=== PATIENT | female | born 1930 | race African-American/Black ===

== ENCOUNTER 2018-02-22 17:51 | Emergency (ER) | payer OTHER, MEDICAID ==
[~2018-02-22] VITALS: Ht 172.7 cm; Wt 62.1 kg
[2018-02-22 17:51] VITALS: BP 146/86
[~2018-02-22 17:51] MED LIST: ACET-5636 PO; AMLO10TA1 PO; AMLO5TAB PO; ASPI-1790 PO; BISA10SU2 RC; CALC-20 PO; CRAN475C PO; DOCU-299 PO; DONE10TA10 PO; DULO30EC PO; FLUT0.0548 NS; GABA-560 PO; LACT10SO1 PO; LUBI24SG4 PO; MEMA10TA PO; METO-50 PO; NITR0.3T12 SL; PANT20EC PO; PRAM0.75 PO; RAMI10CA PO; ROC1PM IV; SIMV20TA6; [UNRECOGNIZED DRUG - CODE] PO
--- NOTE | 2018-02-22 17:51 | NUR ---
PT JESSICA BLS TO ER BED 07
--- NOTE | 2018-02-22 17:55 | NUR ---
87 y/f biba amr bls from [facility] with c/o left leg x today and dysuria/vaginal pain x yesterday. Patient denies any recent fall or injury to left leg. No swelling or discoloration noted. be down, bedrail up x 1, er md aware and notified of pt status. hx--COPD, CHF, Hyperlipidemia, Depression, HTN, SVT, Chronic pain with narcotic dependence
--- NOTE | 2018-02-22 19:12 | NUR ---
REPORT FROM JAYLAN SEE FOR TRANSFER OF CARE
[2018-02-22] MEDS ORDERED: LEVOFLOXACIN 500 MG/D5W PREMIX 100 ML IV ONE (20:40)
[2018-02-22] MEDS ORDERED: HYDROcodone/APAP 5/325 MG 1 TAB TAB PO ONE ×3 (20:40→23:25)
--- NOTE | 2018-02-22 20:56 | NUR ---
ULTRASOUND AT BEDSIDE.
[2018-02-22 21:32] LABS: BASOPHILS # (AUTO) 0.1 K/uL (0.00-0.22); BASOPHILS % (AUTO) 0.8 % (0.0-2.0); EOSINOPHILS # (AUTO) 0.2 K/uL (0-0.4); HEMATOCRIT 33.9 % (36-48); HEMOGLOBIN 10.9 g/dL (12.0-16.0); LYMPHOCYTES # (AUTO) 1.7 K/uL (2.5-16.5); LYMPHOCYTES % (AUTO) 24.7 % (20.5-51.1); MEAN CORPUSCULAR HEMOGLOBIN 31 pg (27-31); MEAN CORPUSCULAR HGB CONC 32 g/dL (33-37); MEAN CORPUSCULAR VOLUME 95.1 fL (80-94); MONOCYTES # (AUTO) 0.4 K/uL (0.8-1.0); MONOCYTES % (AUTO) 5.6 % (1.7-9.3); NEUTROPHILS # (AUTO) 4.5 K/uL (1.8-7.7); NEUTROPHILS % (AUTO) 65.9 % (42.2-75.2); PLATELET COUNT (AUTO) 225 K/uL (140-450); RED BLOOD CELL COUNT(AUTO) 3.56 MIL/uL (4.20-5.40); RED CELL DISTRIBUTION WIDTH 13.7 % (11.6-13.7); WHITE BLOOD COUNT (AUTO) 6.9 K/uL (4.8-10.8)
[2018-02-22 21:34] LABS: APPEARANCE,URINE CLEAR (CLEAR); BILIRUBIN,URINE NEGATIVE (NEGATIVE); BLOOD, URINE NEGATIVE (NEGATIVE); COLOR,URINE YELLOW (YELLOW); LEUKOCYTE ESTERASE ,URINE NEGATIVE (NEGATIVE); NITRITE, URINE NEGATIVE (NEGATIVE); UGLUCOSE NEGATIVE (NEGATIVE)
[2018-02-22 21:46] LABS: ANION GAP 7.3 (8-16); CARBON DIOXIDE 31.8 mmol/L (21-32); CHLORIDE 101 mmol/L (98-107); CREATININE 0.9 mg/dL (0.6-1.3); GLUCOSE 104 mg/dL (74-106); POTASSIUM 4.1 mmol/L (3.5-5.1); SODIUM SERUM 136 mmol/L (136-145); UREA NITROGEN, BLOOD 18 mg/dL (7-18)
[2018-02-22 21:52] LABS: ALBUMIN 3.4 g/dL (3.4-5.0); ASPARTATE AMINOTRANSFERASE 19 U/L (15-37); TOTAL BILIRUBIN 0.2 mg/dL (0.0-1.0)
--- NOTE | 2018-02-22 22:26 | NUR ---
PT RESTING. GIVEN WATER, NO FURTHER REQUESTS AT THIS TIME. WILL CONTINUE TO MONITOR.
--- NOTE | 2018-02-22 23:50 | NUR ---
PATIENT RESTING AT THIS TIME. NO SIGNS OF DISTRESS.
[2018-02-23 00:20] VITALS: BP 145/82
--- NOTE | 2018-02-23 00:20 | NUR ---
Patient discharged with v/s stable. Written and verbal after care instructions given and explained. Patient alert, oriented and verbalized understanding of instructions. Ambulance Transport with to [facility]. All questions addressed prior to discharge. ID band removed. Patient advised to follow up with PMD. Rx of TRAMADOL 50MG AND MACROBID CAPSULE 100MG given. Patient educated on indication of medication including possible reaction and side effects. Opportunity to ask questions provided and answered.
== END 2018-02-23 00:20 ==
LOC: MED 17:51
DX: N30.90 Cystitis, unspecified without hematuria (principal); M79.605 Pain in left leg; I11.0 Hypertensive heart disease with heart failure; I50.9 Heart failure, unspecified; J44.9 Chronic obstructive pulmonary disease, unspecified; F03.90 Unspecified dementia, unspecified severity, without behavioral disturbance, psychotic disturbance, mood disturbance, and anxiety; E78.5 Hyperlipidemia, unspecified; F32.9 Major depressive disorder, single episode, unspecified; Z88.0 Allergy status to penicillin; Z79.899 Other long term (current) drug therapy; Z79.82 Long term (current) use of aspirin
CPT/HCPCS: 36415; 80053; 81003; 85025; 87040; 93971; 96365; 99285; J1956; Q0092

== ENCOUNTER 2018-03-25 15:36 | Emergency (ER) | payer OTHER, MEDICAID ==
[~2018-03-25] VITALS: Ht 172.7 cm; Wt 59.9 kg
--- NOTE | 2018-03-25 15:40 | NUR ---
PT LAURAA BLS TO ER BED 09
[2018-03-25 15:42] VITALS: BP 161/64
--- NOTE | 2018-03-25 15:45 | NUR ---
PT BIBA c/o buttock pain, takes percocet last dose today with no relief. WHEELCHAIR BOUND. DENIES INJURIES, SKIN INTACT. 01/23 pain. no other complaints.
[2018-03-25] MEDS ORDERED: MORPHINE SULFATE 4 MG/ML SYR IM ONE ×2 (15:55→16:50)
--- NOTE | 2018-03-25 16:20 | NUR ---
ATTEMPTED STRAIGHT CATH X 2, UNABLE TO OBTAIN URINE. EDMD AWARE.
--- NOTE | 2018-03-25 16:31 | NUR ---
COLLECTED URINE VIA BED PAIN
--- NOTE | 2018-03-25 16:45 | NUR ---
PT C/O PAIN, EDMD AWARE
--- NOTE | 2018-03-25 16:55 | NUR ---
CALLED [facility], S/W [facility], TRANSPORT ETA 90 MINUTES. WILL ARRIVE AROUND 183
--- NOTE | 2018-03-25 17:11 | NUR ---
PT GIVEN WATER, TOILETED CHANGED AND CLEANED AND POSITION CHANGED. NO COMPLAINTS AT THIS TIME.
--- NOTE | 2018-03-25 17:30 | NUR ---
PT REFUSING TO KEEP MONITOR ON, EDMD AWARE
[2018-03-25 18:30] VITALS: BP 158/78
--- NOTE | 2018-03-25 18:31 | NUR ---
Patient discharged with v/s stable. Written and verbal after care instructions given and explained. Patient alert, oriented and verbalized understanding of instructions. Ambulatory with to [facility]. All questions addressed prior to discharge. ID band removed. Patient advised to follow up with PMD. Rx of PERCOCET given. Patient educated on indication of medication including possible reaction and side effects. Opportunity to ask questions provided and answered.
--- NOTE | 2018-03-25 18:34 | NUR ---
REPORT GIVEN TO EAGLE TIAN AT [facility]
== END 2018-03-25 18:31 | disposition home or self-care (01) ==
LOC: MED 15:36
DX: K62.89 Other specified diseases of anus and rectum (principal); K59.00 Constipation, unspecified; R30.0 Dysuria; I50.9 Heart failure, unspecified; I11.0 Hypertensive heart disease with heart failure; J44.9 Chronic obstructive pulmonary disease, unspecified; F03.90 Unspecified dementia, unspecified severity, without behavioral disturbance, psychotic disturbance, mood disturbance, and anxiety; Z86.73 Personal history of transient ischemic attack (TIA), and cerebral infarction without residual deficits; Z88.0 Allergy status to penicillin; Z79.899 Other long term (current) drug therapy; Z79.82 Long term (current) use of aspirin
CPT/HCPCS: 81002; 96372; 99283; J2270

== ENCOUNTER 2019-03-15 22:58 | Inpatient (IN) | payer OTHER, MEDICAID ==
[~2019-03-15] VITALS: Ht 170.2 cm; Wt 63.5 kg
[2019-03-15 22:58] VITALS: BP 151/84
[~2019-03-15 22:58] MED LIST changes: -ASPI-1790 PO; +ASPI-1886 PO; +METO-251 PO; -METO-50 PO; +SIMV-30; -SIMV20TA6
--- NOTE | 2019-03-15 22:58 | NUR ---
PT [facility]IB [facility]. TAKEN TO BED 7
--- NOTE | 2019-03-15 23:06 | NUR ---
Dr. Butterfield examining patient.
[2019-03-15] MEDS ORDERED: NACL 0.9% 500 ML IV SCH (23:11)
[2019-03-15] MEDS ORDERED: MORPHINE SULFATE 2 MG/ML SYR IVP ONE ×3 (23:15→23:55)
--- NOTE | 2019-03-15 23:30 | NUR ---
RECEIVED PATIENT FROM THE THE AMBULANCE STAFF. PATIENT AWAKE,CONFUSED WITH LEFT LEG SWOLLEN AND APPEARED TO BE OUT OF PLACE. PATIENT S/P FALL FROM THE HALFWAY. PATIENT HAD CAV 06/19/2018 WITH LEFT SIDED WEAKNESS AND UNABLE TO SPEAK BUT ABLE TI NODE YES OR NO. MONITOR CONNECTED WITHE THE PULSE OXIMATORY AND BLOOD PRESSURE CUFF. VITAL SIGN TAKEN AND RECORDED WNL. IV ACCESS WAS ESTABLISHED AND ORDERED LABS DRAWN THEN. 500ML NL SALINE TO RUN OPEN WAS SARTED ALSO. pATIENT WAS MADE COMFORTABLE. WILL MONITOR.
--- NOTE | 2019-03-16 00:03 | NUR ---
XRAY AT BEDSIDE
[2019-03-16 00:05] LABS: BASOPHILS % (AUTO) 0.4 % (0.0-2.0); EOSINOPHILS # (AUTO) 0.1 K/uL (0-0.4); EOSINOPHILS % (AUTO) 1.2 % (0.0-4.0); HEMATOCRIT 29.3 % (36-48); HEMOGLOBIN 9.4 g/dL (12.0-16.0); LYMPHOCYTES % (AUTO) 13.2 % (20.5-51.1); MEAN CORPUSCULAR HEMOGLOBIN 31 pg (27-31); MEAN CORPUSCULAR HGB CONC 32 g/dL (33-37); MEAN CORPUSCULAR VOLUME 94.6 fL (80-94); MONOCYTES # (AUTO) 0.6 K/uL (0.8-1.0); MONOCYTES % (AUTO) 7.5 % (1.7-9.3); NEUTROPHILS % (AUTO) 77.7 % (42.2-75.2); PLATELET COUNT (AUTO) 191 K/uL (140-450); RED BLOOD CELL COUNT(AUTO) 3.09 MIL/uL (4.20-5.40); RED CELL DISTRIBUTION WIDTH 13.8 % (11.6-13.7); WHITE BLOOD COUNT (AUTO) 7.7 K/uL (4.8-10.8)
[2019-03-16 00:19] LABS: ANION GAP 9.5 (8-16); CARBON DIOXIDE 32.2 mmol/L (21-32); CHLORIDE 105 mmol/L (98-107); CREATININE 1.1 mg/dL (0.6-1.3); GLUCOSE 123 mg/dL (74-106); POTASSIUM 4.7 mmol/L (3.5-5.1); SODIUM SERUM 142 mmol/L (136-145); UREA NITROGEN, BLOOD 23 mg/dL (7-18)
[2019-03-16 00:27] LABS: ALBUMIN 3.1 g/dL (3.4-5.0); ASPARTATE AMINOTRANSFERASE 21 U/L (15-37); TOTAL BILIRUBIN 0.3 mg/dL (0.0-1.0)
[2019-03-16 00:34] LABS: PROTHROMBIN TIME 10.1 secs (10.8-13.4)
[2019-03-16] MEDS ORDERED: NACL 0.9% 1,500 ML IV ONE (00:45)
[2019-03-16] MEDS ORDERED: XALOS OP (01:48)
[2019-03-16] MEDS ORDERED: METO-251 PO (01:48)
[2019-03-16] MEDS ORDERED: MEMA10TA PO (01:48)
[2019-03-16] MEDS ORDERED: DULO60EC PO (01:48)
[2019-03-16] MEDS ORDERED: SACU1TAB9 PO (01:48)
[2019-03-16] MEDS ORDERED: AMLO5TAB PO (01:48)
[2019-03-16] MEDS ORDERED: FENT50TD45 TD (01:48)
[2019-03-16] MEDS ORDERED: PUL.5N NEB (01:48)
[2019-03-16] MEDS ORDERED: ORE25 PO (01:48)
[2019-03-16] MEDS ORDERED: TRAZ-343 PO (01:48)
[2019-03-16] MEDS ORDERED: DEXT1DRO4 OP (01:48)
[2019-03-16] MEDS ORDERED: OMEP20TC12 PO (01:48)
[2019-03-16] MEDS ORDERED: ATRN INH (01:48)
[2019-03-16] MEDS ORDERED: LEVA0.6318 INH (01:48)
[2019-03-16] MEDS ORDERED: ACET-5636 PO (01:48)
--- NOTE | 2019-03-16 01:50 | NUR ---
LEFT LEG IMMOBILIZER APPLIED EARLIER. PATIENT HAD A LARGE BROWN FORMED BM. WAS CLEANED AND MADE COMFORTABLE. BABB CATHETER WAS INSERTED AT THIS TIME WITH OUT 600CC OF URINE. uRINE SPECIMEN WAS SENT TO THE LAB WAS ORDERED FOR U/A AND C/S. PATIENT WAS MADE COMFORTABLE.
[2019-03-16 01:55] LABS: MAGNESIUM 1.8 mg/dL (1.8-2.4); PHOSPHORUS 3.6 mg/dL (2.5-4.9); THYROID STIMULATING HORMONE 0.83 uIU/mL (0.34-3.74)
[2019-03-16 02:20] LABS: APPEARANCE,URINE HAZY (CLEAR); BILIRUBIN,URINE NEGATIVE (NEGATIVE); BLOOD, URINE 1+ (NEGATIVE); COLOR,URINE YELLOW (YELLOW); LEUKOCYTE ESTERASE ,URINE TRACE (NEGATIVE); NITRITE, URINE POSITIVE (NEGATIVE); PH,URINE 6.5 (5.0-9.0); UGLUCOSE NEGATIVE (NEGATIVE)
[2019-03-16] MEDS ORDERED: DOCUSATE SODIUM 100 MG GELCAP PO PRN (02:20)
[2019-03-16] MEDS ORDERED: ONDANSETRON 4 MG/2 ML VIAL IM/IVP PRN (02:20)
[2019-03-16] MEDS: NACL 0.9% 1,000 ML IV SCH (02:20)
[2019-03-16 02:27] LABS: RBC,URINE 0-5 /HPF (0-5)
[2019-03-16] MEDS ORDERED: NON-FORMULARY ITEM (Lactulose 15 ML) PO PRN (02:35)
[2019-03-16] MEDS ORDERED: NON-FORMULARY ITEM (Levalbuterol HCl* (Xopenex*) 0.63 MG) INH SCH (02:35)
[2019-03-16] MEDS ORDERED: NITROGLYCERIN 0.4 MG SL PRN (02:35)
[2019-03-16] MEDS ORDERED: ALBUTEROL SULFATE/IPRATROPIU 3 ML SOL IH PRN (02:35)
[2019-03-16] MEDS ORDERED: NON-FORMULARY ITEM (Bisacodyl (Dulcolax) 10 MG) RC PRN (02:35)
[2019-03-16] MEDS ORDERED: NON-FORMULARY ITEM (Oxycodone HCl/Acetaminophen (Percocet 10-325 mg Tablet) 1 TAB) PO PRN (02:35)
[2019-03-16] MEDS ORDERED: IPRATROPIUM 0.02% 0.5 MG/2.5 ML NEBU INH PRN (02:35)
[2019-03-16] MEDS ORDERED: metroNIDAZOLE 500 MG TAB PO SCH ×3 (02:50→09:00)
[2019-03-16] MEDS ORDERED: FUROSEMIDE 40 MG/4 ML VIAL IVP SCH ×2 (03:00→09:00)
--- NOTE | 2019-03-16 03:30 | NUR ---
PATIENT WAS TRANSFERED TO ROOM 108 BED B. REPORT WAS GIVEN TO JAREDANA RN FOR CONTINOUS EXPERT CARE.
--- NOTE | 2019-03-16 03:37 | NUR ---
RECIEVED PT AAOX1 , SLURRED SPEECH , FROM ER / GURNEY ON O2 AT 4LPM/NC , O2 SAT 90 % , S/P FELL INCIDENT , IV SITE INTACT AND PATENT PLAN OF CARE DISCUSSED BUT POOR UNDERSTANDING DUE TO MENTAL STATUS . WILL CONT. TO MONITOR.
--- NOTE | 2019-03-16 03:37 | NUR ---
PHARMACIST CALL AND ASKING IF THE DOCTOR REALLY WANT TO PRESCRIBE THE ROCEPHIN - BECAUSE THE PT. IS ALLERGIC TO PENICILLIN AND IF THE HEPARIN 5 ,000 UNITS IS PRESCRIBED PROPHYLAXIS , WILL CLARIFY TO THE MICHELLE.
--- NOTE | 2019-03-16 03:39 | NUR ---
MICHELLE SAID PROCEED THE ORDER OF ROCEPHIN , BUT DON'T GIVE HEPARIN UNTIL THE CT HEAD IS NOT YET DONE - INFORM PHARMACIST.
[2019-03-16 04:00] VITALS: BP 130/70
[2019-03-16] MEDS ORDERED: cefTRIAXone 1,000 MG VIAL ONE (05:39)
--- NOTE | 2019-03-16 06:36 | NUR ---
PT REFUSED TO ELEVATE THE HEAD OF THE BED BECAUSE IT'S AGGRAVATES THE PAIN OF HER FX - UNABLE TO GIVE METRONIDAZOLE TAB. - WILL REFER TO MICHELLE .
--- NOTE | 2019-03-16 06:37 | NUR ---
METRONIDAZOLE ORAL - NOT GIVEN - MICHELLE SHIFTED ORAL FLAGYL TO IV.
[2019-03-16] MEDS: ALBUTEROL SULFATE/IPRATROPIU 3 ML SOL IH SCH ×2 (07:01→19:00)
--- NOTE | 2019-03-16 07:05 | NUR ---
HX: DEMENTIA CVA PATIENT UNABLE TO COMPREHEND VERBAL COMMANDS FOR INCENTIVE SPIROMETRY THERAPY
[2019-03-16 07:22] LABS: BASOPHILS % (AUTO) 0.2 % (0.0-2.0); HEMATOCRIT 26.4 % (36-48); HEMOGLOBIN 8.5 g/dL (12.0-16.0); LYMPHOCYTES # (AUTO) 0.7 K/uL (2.5-16.5); LYMPHOCYTES % (AUTO) 7.9 % (20.5-51.1); MEAN CORPUSCULAR HEMOGLOBIN 31 pg (27-31); MEAN CORPUSCULAR HGB CONC 32 g/dL (33-37); MEAN CORPUSCULAR VOLUME 94.4 fL (80-94); MONOCYTES # (AUTO) 0.5 K/uL (0.8-1.0); MONOCYTES % (AUTO) 5.7 % (1.7-9.3); NEUTROPHILS # (AUTO) 7.1 K/uL (1.8-7.7); NEUTROPHILS % (AUTO) 86.2 % (42.2-75.2); PLATELET COUNT (AUTO) 169 K/uL (140-450); RED CELL DISTRIBUTION WIDTH 13.7 % (11.6-13.7); WHITE BLOOD COUNT (AUTO) 8.3 K/uL (4.8-10.8)
[2019-03-16 08:00] VITALS: BP 128/88
[2019-03-16 08:00] LABS: ALBUMIN 2.9 g/dL (3.4-5.0); AMYLASE 123 U/L (25-115); ANION GAP 9.3 (8-16); ASPARTATE AMINOTRANSFERASE 15 U/L (15-37); CARBON DIOXIDE 32.2 mmol/L (21-32); CHLORIDE 105 mmol/L (98-107); CREATININE 1.1 mg/dL (0.6-1.3); GLUCOSE 133 mg/dL (74-106); LIPASE 31 U/L (73-393); MAGNESIUM 1.8 mg/dL (1.8-2.4); PHOSPHORUS 3.2 mg/dL (2.5-4.9); POTASSIUM 4.5 mmol/L (3.5-5.1); SODIUM SERUM 142 mmol/L (136-145); THYROID STIMULATING HORMONE 0.37 uIU/mL (0.34-3.74); TOTAL BILIRUBIN 0.3 mg/dL (0.0-1.0); UREA NITROGEN, BLOOD 21 mg/dL (7-18)
[2019-03-16 08:05] LABS: CHOL/HDL RATIO 3.1 (1-4.5)
[2019-03-16] MEDS ORDERED: NITROGLYCERIN 0.4 MG TAB SL PRN (08:20)
--- NOTE | 2019-03-16 08:35 | NUR ---
RECEIVED REPORT FROM NIGHT RN. PATIENT IS DNR, ALLERGIES TO PENICILLIN. AAOX1-2, PATIENT HAS SLURRED SPEECH, ABLE TO NOD YES/NO. PATIENT IS ON NASAL CANNULA 4L, BEDBOUND AT BASELINE. PATIENT IS A FALL RISK, WRISTBAND APPLIED, YELLOW SOCKS ON, SIGN AT DOOR. PT HAS A RIGHT FA IV 22G, WOUND PRESENT TO COCCYX AREA. ON CARDIAC DIET. CURRENTLY RESTING IN BED, NO SIGNS OF RESPIRATORY DISTRESS. WILL REVIEW AND CONTINUE WITH PLAN OF CARE.
[2019-03-16] MEDS ORDERED: fentaNYL 0.05 MG/HR PATCH TD SCH ×2 (09:00→14:05)
[2019-03-16] MEDS ORDERED: NON-FORMULARY ITEM (Dextran 70/Hypromellose (Artificial Tears) 1 EACH) OP SCH (09:00)
[2019-03-16] MEDS ORDERED: ASPIRIN 325 MG TAB PO SCH (09:00)
[2019-03-16] MEDS: DOCUSATE SODIUM 100 MG GELCAP PO SCH ×2 (09:00→20:21)
[2019-03-16] MEDS ORDERED: NON-FORMULARY ITEM (Sacubitril/Valsartan (Entresto 49 mg-51 mg Tablet) 1 EACH) PO SCH (09:00)
[2019-03-16] MEDS ORDERED: NON-FORMULARY ITEM (Omeprazole (Omeprazole) 1 TAB) PO SCH (09:00)
[2019-03-16] MEDS: PANTOPRAZOLE 40 MG TABEC PO SCH (09:00)
--- NOTE | 2019-03-16 09:00 | NUR ---
ADMINISTERED MORNING MEDICATION CRUSHED AND MIXED WITH APPLESAUCE. DID NOT ADMINISTER MORNING PO PROTONIX D/T UNABLE TO CRUSH ENTERIC COATED RX. GAVE PATIENT ATIVAN FOR AGITATION AND ATTEMPTING TO PULL OUT F/C
[2019-03-16] MEDS: LORazepam 2 MG/ML VIAL IM/IVP PRN ×2 (09:04→13:59)
[2019-03-16] MEDS: HYDROCHLOROTHIAZIDE 25 MG TAB PO SCH (09:05)
[2019-03-16] MEDS: ATORVASTATIN 20 MG TAB PO SCH (09:06)
[2019-03-16] MEDS: MEMANTINE 10 MG TAB PO SCH ×2 (09:06→20:22)
[2019-03-16] MEDS: METOPROLOL 50 MG TAB PO SCH ×2 (09:07→20:22)
[2019-03-16] MEDS: DULoxetine 30 MG CAPDR PO SCH (09:08)
[2019-03-16] MEDS: amLODIPine 5 MG TAB PO SCH (09:09)
[2019-03-16] MEDS: metroNIDAZOLE 500 MG/NS PREMIX 100 ML IV SCH ×2 (09:13→17:05)
[2019-03-16] MEDS: BUDESONIDE 0.5 MG/2 ML NEBU INH SCH (09:52)
--- NOTE | 2019-03-16 11:15 | NUR ---
PATIENT RESTING QUIETLY IN BED. NO DISTRESS OR AGITATION AT THIS TIME.
[2019-03-16 12:00] VITALS: BP 107/71
--- NOTE | 2019-03-16 12:30 | NUR ---
FAMILY MEMBER AT BEDSIDE. PATIENT IS SLEEPING, VISIBLE CHEST RISE AND FALL. NO COMPLAINTS AT THIS TIME
--- NOTE | 2019-03-16 13:59 | NUR ---
PATIENT IS EXTREMELY AGITATED AND PULLING OFF GOWN CONTINUOUSLY. ADMINISTERED ATIVAN IVP FOR AGITATION
[2019-03-16 16:00] VITALS: BP 120/71
[2019-03-16] MEDS ORDERED: OLANZapine 2.5 MG TAB PO SCH (16:30)
--- NOTE | 2019-03-16 17:05 | NUR ---
ADMINISTERED ZYPREXA CRUSHED AND MIXED WITH PUDDING. GAVE NEXT DOSE IVPB FLAGYL. PATIENT HAD LARGE BM X1. SON AT BEDSIDE. NO COMPLAINTS AT THIS TIME.
--- NOTE | 2019-03-16 19:15 | NUR ---
RECEIVED PT SLEEPING, AROUSABLE, DROWSY AND MUMBLES, VITAL SIGNS STABLE, NO SIGNS OF PAIN, IVF INFUSING WELL, WITH LEFT LEG SPLINT COVERED WITH YOLANDA WRAP BANDAGE, BABB CATHETER WITH YELLOW URINE, SAFETY MEASURES IN PLACE, SIDE RAILS UP AND BED ALARM ON, CALL LIGHT WITHIN REACH.
[2019-03-16 20:00] VITALS: BP 138/66
[2019-03-16] MEDS: traZODone 50 MG TAB PO SCH (20:22)
--- NOTE | 2019-03-16 20:30 | NUR ---
DUE MEDICATIONS CRUSHED AND GIVEN WITH APPLE SAUCE, PT NEEDS A LOT OF ENCOURAGEMENT AND TIME IN TAKING MEDS, ABLE TO TOLERATE MEDS, ALL NEEDS ATTENDED, BED ALARM ON.
[2019-03-16] MEDS ORDERED: ZOLPIDEM TARTRATE PO SCH (21:00)
--- NOTE | 2019-03-16 21:25 | NUR ---
PER DR KAMALA MIKE OK TO START HEPARIN SUB-Q, ADMINISTERED TO LEFT ARM, PT SLEEPING, MONITORED CLOSELY.
[2019-03-16 23:40] VITALS: BP 152/61
[2019-03-17] MEDS: metroNIDAZOLE 500 MG/NS PREMIX 100 ML IV SCH ×3 (01:05→16:21)
[2019-03-17] MEDS: NACL 0.9% 1,000 ML IV SCH ×2 (02:20→19:47)
--- NOTE | 2019-03-17 02:20 | NUR ---
PT REPOSITIONED, NEW DRESSING APPLIED TO SACRAL ULCER, MONITORED CLOSELY.
--- NOTE | 2019-03-17 03:24 | NUR ---
PT AWAKE, RESTLESS, TOOK OFF GOWN, NASAL CANNULA AND TELE MONITOR, TRYING TO PULL OUT BABB CATHETER AND IV LINE, PAGED DR WILLIS, WITH NEW ORDER OF ATIVAN IVP X1 DOSE, IV LINE SITE COVERED WITH YOLANDA WRAPPED, JIMI MCDANIEL AT BEDSIDE FOR CLOSE MONITORING, ATIVAN IVP GIVEN PRN, SIDE RAILS UP AND BED ALARM ON, MONITORED CLOSELY.
[2019-03-17] MEDS ORDERED: LORazepam 2 MG/ML VIAL IVP SCH ×2 (03:30→14:00)
[2019-03-17 04:00] VITALS: BP 153/60
--- NOTE | 2019-03-17 04:30 | NUR ---
ROUNDS MADE, SEEN PT SLEEPING, NO SIGNS OF DISTRESS, IV INFUSING WELL, BED ALARM ON.
--- NOTE | 2019-03-17 07:05 | NUR ---
RECEIVED REPORT FROM SAWMILL MOULDER OPERATOR NURSE LELO. PT IS SLEEPING AND DROWSY, AROUSABLE TO NAME, FLACC 0. PT ON OIL BURNER SERVICER AND INSTALLER. RESPIRATIONS EVEN AND UNLABORED ON O2 3L VIA N/C. ABD SOFT, ACTIVE BS, LBM 03/17. F/C IN PLACE, DRAINING YELLOW CLEAR AND YELLOW URINE, NOTED 200 ML IN COLLECTION BAG. PT HAS BILATERAL FRACTURE TO LOWER EXTREMITIES, NOTED SPLINT TO LT LEG. PT ON FALL RISK PRECAUTIONS, BED ALARMS ON, SAFETY MEASURE IN PLACE, CALL LIGHT WITHIN REACH. WILL REVIEW POC WITH PT AT A LATER TIME.
--- NOTE | 2019-03-17 07:10 | NUR ---
PT SLEEPING, NO SIGNS OF DISTRESS, BEDSIDE REPORT GIVEN TO JAYLAN KUNZ FOR CONTINUITY OF CARE.
[2019-03-17 07:39] LABS: ANION GAP 9.5 (8-16); CARBON DIOXIDE 30.5 mmol/L (21-32); CHLORIDE 107 mmol/L (98-107); CREATININE 1.4 mg/dL (0.6-1.3); GLUCOSE 129 mg/dL (74-106); SODIUM SERUM 143 mmol/L (136-145); UREA NITROGEN, BLOOD 26 mg/dL (7-18)
--- NOTE | 2019-03-17 07:40 | NUR ---
PER BUTTON SEWING MACHINE OPERATOR/YADY, PT IS UNABLE TO STAY AWAKE FOR FEEDING AND IS AT RISK FOR ASPIRATION. DR. NOLAND AT BEDSIDE, UNABLE TO ASK PT QUESTIONS D/T DROWSINESS. WILL REATTEMPT FEEDING AT A LATER TIME. IV ON RT FA 22 GA RUNNING IVF PER ORDER, DRESSING CLEAN, DRY AND INTACT.
[2019-03-17 07:41] LABS: MAGNESIUM 1.9 mg/dL (1.8-2.4)
[2019-03-17 08:00] VITALS: BP 130/57
[2019-03-17 08:07] LABS: T4 (THYROXINE) 6.7 ug/dL (4.5-12.0)
[2019-03-17 08:25] LABS: BASOPHILS % (AUTO) 0.2 % (0.0-2.0); EOSINOPHILS % (AUTO) 0.1 % (0.0-4.0); MEAN CORPUSCULAR HEMOGLOBIN 31 pg (27-31); PLATELET COUNT (AUTO) 145 K/uL (140-450)
--- NOTE | 2019-03-17 08:56 | NUR ---
PATIENT HAS BEEN SCREENED AND CATEGORIZED HIGH NUTRITION RISK. PATIENT WILL BE SEEN WITHIN 1-2 DAYS OF ADMISSION. 03/17/[address]
[2019-03-17] MEDS: ALBUTEROL SULFATE/IPRATROPIU 3 ML SOL IH SCH ×3 (09:02→19:55)
[2019-03-17] MEDS: BUDESONIDE 0.5 MG/2 ML NEBU INH SCH (09:02)
[2019-03-17 09:03] LABS: HEMATOCRIT 21.6 % (36-48); LYMPHOCYTES # (AUTO) 1.1 K/uL (2.5-16.5); MEAN CORPUSCULAR HGB CONC 32 g/dL (33-37); MEAN CORPUSCULAR VOLUME 94.2 fL (80-94); MONOCYTES # (AUTO) 0.7 K/uL (0.8-1.0); MONOCYTES % (AUTO) 8.7 % (1.7-9.3); NEUTROPHILS # (AUTO) 6.6 K/uL (1.8-7.7); RED BLOOD CELL COUNT(AUTO) 2.29 MIL/uL (4.20-5.40); WHITE BLOOD COUNT (AUTO) 8.5 K/uL (4.8-10.8)
--- NOTE | 2019-03-17 09:10 | NUR ---
PT'S DAUGHTER/JACLYN GIVEN UPDATES ON PT'S CONDITION AND POC, ALL QUESTIONS ANSWERED AND CLARIFIED.
--- NOTE | 2019-03-17 09:25 | NUR ---
REPORTED TO DR. ARIAS PT'S LOC THAT PT IS UNABLE TO STAY AWAKE FOR FEEDING. PER PHYSICIAN, HOLD PO MEDICATIONS AT THIS TIME BECAUSE PT IS AT HIGH RISK FOR ASPIRATION AND REASSESS CONDITION AT A LATER TIME.
[2019-03-17] MEDS: DULoxetine 30 MG CAPDR PO SCH (10:15)
[2019-03-17] MEDS: ATORVASTATIN 20 MG TAB PO SCH (10:15)
[2019-03-17] MEDS: HYDROCHLOROTHIAZIDE 25 MG TAB PO SCH (10:15)
[2019-03-17] MEDS: PANTOPRAZOLE 40 MG TABEC PO SCH (10:15)
[2019-03-17] MEDS: DOCUSATE SODIUM 100 MG GELCAP PO SCH ×2 (10:15→21:07)
[2019-03-17] MEDS: MEMANTINE 10 MG TAB PO SCH ×2 (10:15→21:09)
[2019-03-17] MEDS: METOPROLOL 50 MG TAB PO SCH (10:15)
[2019-03-17] MEDS: amLODIPine 5 MG TAB PO SCH (10:15)
[2019-03-17] MEDS: ECOTRIN 81 MG TABEC PO SCH (10:15)
--- NOTE | 2019-03-17 10:15 | NUR ---
REPORTED TO DR. ARIAS, PT'S HGB LEVEL OF 7.0, PHYSICIAN PLACED ORDERS FOR STAT CBC REDRAW. ALSO RECEIVED ORDERS TO COLLECT STOOL FOR OCCULT BLOOD TEST. Addendum: 03/17/19 at 1022 by Carolee Coe RN PT IS STILL DIFFICULT TO AROUSE AND UNABLE TO STAY AWAKE FOR A LONG PERIOD, PER PHYSICIAN HOLD PO MEDS AT THIS TIME.
--- NOTE | 2019-03-17 10:19 | NUR ---
NOTIFIED LAB OF STAT ORDER FOR CBC REDRAW, LAB VERBALIZED UNDERSTANDING.
[2019-03-17 10:59] LABS: BASOPHILS % (AUTO) 0.1 % (0.0-2.0); EOSINOPHILS % (AUTO) 0.2 % (0.0-4.0); HEMATOCRIT 22.2 % (36-48); HEMOGLOBIN 7.2 g/dL (12.0-16.0); LYMPHOCYTES # (AUTO) 1.1 K/uL (2.5-16.5); LYMPHOCYTES % (AUTO) 14.7 % (20.5-51.1); MEAN CORPUSCULAR HEMOGLOBIN 31 pg (27-31); MEAN CORPUSCULAR HGB CONC 33 g/dL (33-37); MEAN CORPUSCULAR VOLUME 94.1 fL (80-94); MONOCYTES # (AUTO) 0.9 K/uL (0.8-1.0); MONOCYTES % (AUTO) 11.2 % (1.7-9.3); NEUTROPHILS # (AUTO) 5.7 K/uL (1.8-7.7); NEUTROPHILS % (AUTO) 73.8 % (42.2-75.2); PLATELET COUNT (AUTO) 135 K/uL (140-450); RED BLOOD CELL COUNT(AUTO) 2.36 MIL/uL (4.20-5.40); RED CELL DISTRIBUTION WIDTH 13.9 % (11.6-13.7); WHITE BLOOD COUNT (AUTO) 7.8 K/uL (4.8-10.8)
[2019-03-17 12:00] VITALS: BP 143/69
--- NOTE | 2019-03-17 12:00 | NUR ---
PT IS LYING IN SUPINE POSITION IN BED, RESPIRATIONS EVEN AND UNLABORED ON O2 3L VIA N/C.
[2019-03-17] MEDS ORDERED: SODIUM FERRIC GLUCONATE 125 MG in NACL 0.9% 100 ML IV SCH (12:30)
--- NOTE | 2019-03-17 13:00 | NUR ---
PT ATTEMPTING TO PULL OUT IV LINES AND F/C. INSTRUCTED PT THAT IV IS NEEDED FOR IVF AND IV ABX ADMINISTRATION AND F/C NEEDED TO MONITOR URINE OUTPUT, DX UTI. REINFORCEMENT NEEDED, INSTRUCTED PT SEVERAL TIMES BUT PT UNABLE TO COMPREHEND AND STILL ATTEMPTS TO TAKE OUT LINES AND F/C. NOTIFIED DR. MICHAUD, AWAITING ORDERS AT THIS TIME.
[2019-03-17] MEDS: MORPHINE SULFATE 2 MG/ML SYR IVP PRN (13:29)
--- NOTE | 2019-03-17 13:29 | NUR ---
*S.T. BEDSIDE SWALLOW EVAL COMPLETED* See report. Pt presents w/ moderate-severe oropharyngeal dysphagia c/b prolonged oral prep and delayed pharyngeal swallow initiation, diminished laryngeal elevation during swallow w/ diffuse oral pocketing greater on L side. Pt is at mod risk for aspiration. Recommend: 1) Continue pureed diet, honey thick liquids via spoon only. 2) FNS kitchen to provide prethickened honey texture water for bedside table, please. 3) P.O. meds crushed and mixed w/ puree such as applesauce. 4) 1:1 feeder w/ aspiration precautions. Pt is functioning at her reported baseline level. No further tx is indicated at this time. DC to nsg care. Endorsed to nsg/ JIMI Mcgrath. Time [id number]
[2019-03-17] MEDS ORDERED: MEMANTINE 10 MG TAB PO SCH (14:00)
[2019-03-17] MEDS ORDERED: DULoxetine 30 MG CAPDR PO SCH (14:00)
--- NOTE | 2019-03-17 14:11 | NUR ---
Late entry. Confirmed with RN that 1000ml 0.9 NS IV completed at 0105
--- NOTE | 2019-03-17 15:00 | NUR ---
STUDENT NURSE AT BEDSIDE TO KEEP PT FROM REMOVING IV LINES AND F/C. PT NEEDS FREQUENT REDIRECTION AND REMINDERS.
--- NOTE | 2019-03-17 15:48 | NUR ---
03/17/19 RD INITIAL ASSESSMENT COMPLETED PLEASE REFER TO NUTRITION ASSESSMENT UNDER CARE ACTIVITY FOR ESTIMATED NUTRITIONAL NEEDS. 1. CONTINUE PUREE CARDIAC DIET WITH HONEY THICK LIQUIDS TOLERATED 2. ENCOURAGE INCREASING PO INTAKE 3. CONTINUE TO PROVIDE FEEDING ASSISTANCE WITH MEALS 4. IF PO INTAKE DOES NOT IMPROVE >75% RECOMMEND ENSURE BID 5. RD TO FOLLOW-UP 2-3 DAYS, HIGH RISK SUKHWINDER RIBEIRO, CHELSEA
[2019-03-17 16:00] VITALS: BP 160/69
--- NOTE | 2019-03-17 16:00 | NUR ---
NOTIFIED DR. MICHAUD PT'S BLOOD PRESSURE 160/69, AWAITING ORDERS.
[2019-03-17] MEDS ORDERED: METOPROLOL 25 MG TAB PO SCH (16:07)
--- NOTE | 2019-03-17 16:18 | NUR ---
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 Patient has PMHX of CVA with bilateral lower extremity hemiplegia, CAD, CHF, Alzheimer's, dementia, glaucoma, COPD, atrial fibrillation, osteoarthritis w/ chronic pain, and anxiety. Patient was admitted from [facility]. SW contacted Magda from [facility] [phone]. Per Magda, patient is a senior care patient and is currently on a bed hold. Magda stated that patient's healthcare decision maker is daughter, Jaclyn Palma [phone] and [phone]. Patient has no advanced directive on file. Patient's tentative discharge plan is to return to [facility]. No further needs identified. Signature: TRINA Skaggs Date: Mar 17, 2019 Time: 16:17
--- NOTE | 2019-03-17 16:21 | NUR ---
ADMINISTERED METOPROLOL PER ORDER FOR HIGH BLOOD PRESSURE, GIVEN WITH CHOCOLATE PUDDING.
--- NOTE | 2019-03-17 17:15 | NUR ---
BLOOD PRESSURE DECREASED TO 138/71, HR 87, PT HAS NO S/S OF HYPERTENSION AT THIS TIME.
[2019-03-17 17:20] VITALS: BP 138/71
--- NOTE | 2019-03-17 19:15 | NUR ---
ENDORSED PT TO CONVEYOR MECHANIC NURSE [place]. PT HAS NO SIGNS OF DISTRESS AT THIS TIME.
--- NOTE | 2019-03-17 19:20 | NUR ---
RECEIVED PT IN STABLE CONDITION FROM AM NURSE FOR CONTINUITY OF CARE. BEDREST. ASLEEP BUT EASILY AROUSE WHEN NAME CALLED. NO DISTRESS NOTED. CONFUSED AT TIMES. ON O23L/NC. BEDREST. ON TELE MONITOR. HAS IVF INFUSING WELL ON THE RT FA G#22. BABB CATHETER DRAINING TO YELLOW COLORED URINE. BED ON LOW POSITIONED. SIDE RAILS UP X2. CALL LIGHT PLACED WITHIN REACH. FREQ ROUNDS NEEDED. WILL CONTINUE TO MONITOR.
[2019-03-17 19:42] VITALS: BP 145/64
[2019-03-17] MEDS: ACETAMINOPHEN 325 MG TAB PO PRN (20:30)
--- NOTE | 2019-03-17 20:30 | NUR ---
PT TEMP 101 .SKIN HOT TO TOUCH. COOLING MEASURES DONE. THEN TYLENOL 650 MG PO GIVEN. WILL CONTINUE TO MONITOR.
[2019-03-17] MEDS: POLYVINYL ALCOHOL 1.4% OP 15 ML SOL OP SCH (21:06)
[2019-03-17] MEDS: METOPROLOL 25 MG TAB PO SCH (21:07)
[2019-03-17] MEDS: traZODone 50 MG TAB PO SCH (21:07)
[2019-03-17] MEDS: OLANZapine 5 MG TAB PO SCH (21:08)
--- NOTE | 2019-03-17 21:30 | NUR ---
DR. WRAY,RESIDENT ON DUTY MADE AWARE ABOUT THE PT HR FLUCTUATES FROM 99/MIN TO ST-130/MIN. WILL FOLLOW UP AND CONTINUE TO MONITOR.
--- NOTE | 2019-03-17 22:00 | NUR ---
LATEST TEMP 98.6. WILL STILL CONTINUE TO MONITOR.
[2019-03-17] MEDS: OLANZapine 2.5 MG TAB PO SCH (23:53)
[2019-03-18] VITALS (7 sets, daily range): BP systolic 126–154; BP diastolic 53–72
[2019-03-18] MEDS: metroNIDAZOLE 500 MG/NS PREMIX 100 ML IV SCH ×3 (00:34→17:00)
--- NOTE | 2019-03-18 02:00 | NUR ---
PT KEEP ON REMOVING THE GOWN AND TELE MONITOR. WILL CONTINUE TO MONITOR.
--- NOTE | 2019-03-18 04:00 | NUR ---
PT AFEBRILE. NO S/S OF ANY DISCOMFORT NOTED.
--- NOTE | 2019-03-18 06:40 | NUR ---
FOLLOW UP CT HEAD FOR PT. TALKED TO GREGORIO, PT HAS BEEN CONFUSED. WILL CALL THEM IF PT IS READY FOR THE TEST.
[2019-03-18 07:22] LABS: T3 UPTAKE 31 % (24-39)
--- NOTE | 2019-03-18 07:30 | NUR ---
DR. NOLAND CAME IN ANS SEEN PT. MADE AWARE THAT CT HEAD W/O CONTRAST STILL NEED TO BE DONE. ENDORSED PT IN STABLE CONDITION TO AM NURSE FOR CONTINUITY OF CARE.
--- NOTE | 2019-03-18 07:33 | NUR ---
Received report from shift production supervisor nurse. Pt is in bed in stable condition. Call light in reach.
[2019-03-18] MEDS: ASCORBIC ACID 500 MG TAB PO SCH (08:12)
[2019-03-18] MEDS: DULoxetine 30 MG CAPDR PO SCH (08:12)
[2019-03-18] MEDS: amLODIPine 5 MG TAB PO SCH (08:13)
[2019-03-18] MEDS: ATORVASTATIN 20 MG TAB PO SCH (08:13)
[2019-03-18] MEDS: MEMANTINE 10 MG TAB PO SCH ×2 (08:13→21:24)
[2019-03-18] MEDS: ECOTRIN 81 MG TABEC PO SCH (08:13)
[2019-03-18] MEDS: DOCUSATE SODIUM 100 MG GELCAP PO SCH ×2 (08:13→21:24)
[2019-03-18] MEDS: PANTOPRAZOLE 40 MG TABEC PO SCH (08:14)
[2019-03-18] MEDS: METOPROLOL 25 MG TAB PO SCH ×2 (08:14→21:24)
[2019-03-18 08:15] LABS: ANION GAP 11.8 (8-16); CARBON DIOXIDE 29.9 mmol/L (21-32); CHLORIDE 108 mmol/L (98-107); CREATININE 1.1 mg/dL (0.6-1.3); GLUCOSE 109 mg/dL (74-106); POTASSIUM 3.7 mmol/L (3.5-5.1); SODIUM SERUM 146 mmol/L (136-145); UREA NITROGEN, BLOOD 21 mg/dL (7-18)
[2019-03-18] MEDS: HYDROCHLOROTHIAZIDE 25 MG TAB PO SCH (08:15)
[2019-03-18] MEDS: FERROUS SULFATE 325 MG TABEC PO SCH (08:15)
[2019-03-18 08:52] LABS: BASOPHILS % (AUTO) 0.2 % (0.0-2.0); EOSINOPHILS % (AUTO) 0.1 % (0.0-4.0); LYMPHOCYTES # (AUTO) 1.6 K/uL (2.5-16.5); MEAN CORPUSCULAR HEMOGLOBIN 30 pg (27-31); MEAN CORPUSCULAR HGB CONC 32 g/dL (33-37); MEAN CORPUSCULAR VOLUME 94.6 fL (80-94); MONOCYTES % (AUTO) 9.9 % (1.7-9.3); NEUTROPHILS % (AUTO) 72.8 % (42.2-75.2); PLATELET COUNT (AUTO) 143 K/uL (140-450); RED BLOOD CELL COUNT(AUTO) 2.22 MIL/uL (4.20-5.40); RED CELL DISTRIBUTION WIDTH 14.5 % (11.6-13.7); WHITE BLOOD COUNT (AUTO) 9.7 K/uL (4.8-10.8)
[2019-03-18] MEDS ORDERED: METOPROLOL SUCCINATE 50 MG TABER PO SCH (09:00)
[2019-03-18 09:04] LABS: HEMOGLOBIN 6.7 g/dL (12.0-16.0)
--- NOTE | 2019-03-18 09:15 | NUR ---
Pt is in bed in stable condition. Pt's critical lab value received from lab at 0900 from Tricia. Pt's critical lab value reported to Dr. Gisselle Cheney at 0915. Call light in reach.
[2019-03-18 09:23] LABS: MAGNESIUM 2.2 mg/dL (1.8-2.4); PHOSPHORUS 2.6 mg/dL (2.5-4.9)
--- NOTE | 2019-03-18 09:40 | NUR ---
Consent for blood transfusion received from Xuan Byole, daughter, over phone. Verified with a second nurse.
[2019-03-18 10:18] LABS: FOLIC ACID 16.6 ng/mL (>3.0)
[2019-03-18] MEDS: POLYVINYL ALCOHOL 1.4% OP 15 ML SOL OP SCH ×2 (10:25→21:23)
--- NOTE | 2019-03-18 11:00 | NUR ---
Pt is in bed in stable condition. Family by bedside. Call light in reach.
[2019-03-18] MEDS: HYDROcodone/APAP 5/325 MG 1 TAB TAB PO PRN ×3 (11:10→23:13)
[2019-03-18] MEDS: MORPHINE SULFATE 2 MG/ML SYR IVP PRN (11:21)
[2019-03-18 11:37] LABS: PROTHROMBIN TIME 9.8 secs (10.8-13.4)
--- NOTE | 2019-03-18 15:06 | NUR ---
CONTACTED PICC LINE SERVICE, SPOKE WITH JOANN, STATED [facility]-PICC LINE RN WILL CALL FOR ETA. DEBORA-JAYLAN MADE AWARE.
--- NOTE | 2019-03-18 17:00 | NUR ---
Metronidazole not given. Pt has no IV line. PICC line is not yet inserted. Notified pharmacy.
--- NOTE | 2019-03-18 19:11 | NUR ---
RECEIVED PT IN STABLE CONDITION FROM AM NURSE. AWAKE,ALERT X1. ON TELE MONITOR. O22L/NC. NO RESPIRATORY DISTRESS NOTED. BEDREST. WITH RT KNEE SPLINT AND KNEE IMMOBILIZER. LT LEG WITH SPLINT ALSO, LT KNEE SWOLLEN. PIC LINE ON RT UPPER ARM . DOUBLE LUMEN.STILL NEED TO GET ORDER TO OK TO USE. BABB CATH IN PLACED. BED ON LOW POSITION. FREQ ROUNDS. NEEDED. SIDE RAILS UP X2. CALL LIGHT WITHIN REACH. FAMILY AT BEDSIDE. PLAN OF CARE DISCUSSED AND FAMILY VERBALIZED UNDERSTANDING. WIIL CONTINUE TO MONITOR.
--- NOTE | 2019-03-18 19:34 | NUR ---
Report given to cyber transport systems specialist nurse. Pt is in stable condition. Family be bedside. Call light in reach.
[2019-03-18] MEDS: ACETAMINOPHEN 325 MG TAB PO PRN (19:58)
--- NOTE | 2019-03-18 20:15 | NUR ---
1 UNIT PRBC STARTED ON RT UPPER ARN PICC LINE AFTER BEEN VERIFIED WITH PT AND WITH ANOTHER LICENSE RN,MICHELLE VERIFIED.VITAL SIGNS TAKEN 15 MIN BEFORE START OF BLOOD TRANSFUSION. WILL CONTINUE TO MONITOR.
--- NOTE | 2019-03-18 21:03 | NUR ---
RECEIVED PATIENT ON 2L NASAL CANNULA, PULSE OX SAT 98%. NO SOB NOTED AT THIS TIME. PRN HHN NOT INDICATED. NO RESPIRATORY DISTRESS NOTED. WILL CONTINUE TO MONITOR.
[2019-03-18] MEDS: traZODone 50 MG TAB PO SCH (21:24)
[2019-03-18] MEDS: OLANZapine 2.5 MG TAB PO SCH (21:25)
[2019-03-18] MEDS: OLANZapine 5 MG TAB PO SCH (21:25)
--- NOTE | 2019-03-18 22:00 | NUR ---
BLOOD TRANSFUSION STILL INFUSING. NO REACTION TO THE BLOOD AT THIS TIME. WILL CONTINUE TO MONITOR.
--- NOTE | 2019-03-18 23:15 | NUR ---
BLOOD TRANSFUSION FINISHED. NO REACTION NOTED. PICC LINE FLUSHED WITH NS. CLEAR AND PATENT.
--- NOTE | 2019-03-19 00:30 | NUR ---
BLOOD WAS DRAWN ON THE PICC LINE FOR CBC POST TRANSFUSION. WILL FOLLOW UP RESULT.
[2019-03-19] MEDS: metroNIDAZOLE 500 MG/NS PREMIX 100 ML IV SCH ×3 (01:19→18:12)
--- NOTE | 2019-03-19 01:30 | NUR ---
MADE ROUNDS. ASLLEP. NO S/S OF ANT DISCOMFORT NOTED.
[2019-03-19] MEDS: NACL 0.9% 1,000 ML IV SCH ×2 (02:20→13:05)
--- NOTE | 2019-03-19 04:00 | NUR ---
PT ASLEEP. VS STABLE. NO S/S OF ANY DISCOMFORT AT THIS TIME.
[2019-03-19 04:15] VITALS: BP 144/55
[2019-03-19] MEDS: MORPHINE SULFATE 2 MG/ML SYR IVP PRN ×4 (06:29→21:03)
--- NOTE | 2019-03-19 06:29 | NUR ---
DR. APODACA,RESIDENT CAME AND CHECKED ON PT. KNEE IMMOBILIZER TO SWITCH TO LT KNEE . PAIN MED GIVEN PRIOR TO MOVING BOTH LEGS.
--- NOTE | 2019-03-19 06:42 | NUR ---
WILL ENDORSE TO PT TO FAIRY FOR CONTINUITY OF CARE.
--- NOTE | 2019-03-19 07:10 | NUR ---
Received report from window decorator nurse. Pt is in stable condition. Call light in reach.
[2019-03-19 08:00] VITALS: BP 148/61
[2019-03-19] MEDS ORDERED: DEXT 5% / NACL 0.45% 1,000 ML IV SCH (08:30)
[2019-03-19] MEDS: HYDROCHLOROTHIAZIDE 25 MG TAB PO SCH (08:57)
[2019-03-19] MEDS: MEMANTINE 10 MG TAB PO SCH ×2 (08:57→20:52)
[2019-03-19] MEDS: DOCUSATE SODIUM 100 MG GELCAP PO SCH ×2 (08:57→20:51)
[2019-03-19] MEDS: ECOTRIN 81 MG TABEC PO SCH (08:57)
[2019-03-19] MEDS: amLODIPine 5 MG TAB PO SCH (08:58)
[2019-03-19] MEDS: FERROUS SULFATE 325 MG TABEC PO SCH (08:58)
[2019-03-19] MEDS: ASCORBIC ACID 500 MG TAB PO SCH (08:58)
[2019-03-19] MEDS: ATORVASTATIN 20 MG TAB PO SCH (08:58)
[2019-03-19] MEDS: METOPROLOL 25 MG TAB PO SCH ×2 (09:05→20:52)
[2019-03-19] MEDS: PANTOPRAZOLE 40 MG TABEC PO SCH (09:05)
[2019-03-19] MEDS: DULoxetine 30 MG CAPDR PO SCH (09:06)
[2019-03-19] MEDS: POLYVINYL ALCOHOL 1.4% OP 15 ML SOL OP SCH ×2 (09:06→21:10)
[2019-03-19 09:43] LABS: HEMATOCRIT 21.6 % (36-48); HEMOGLOBIN 7.2 g/dL (12.0-16.0); WHITE BLOOD COUNT (AUTO) 9.8 K/uL (4.8-10.8)
[2019-03-19 09:44] LABS: BASOPHILS % (AUTO) 0.2 % (0.0-2.0); EOSINOPHILS % (AUTO) 0.3 % (0.0-4.0); MEAN CORPUSCULAR HEMOGLOBIN 31 pg (27-31); MEAN CORPUSCULAR HGB CONC 33 g/dL (33-37); MEAN CORPUSCULAR VOLUME 94.1 fL (80-94); MONOCYTES % (AUTO) 8.5 % (1.7-9.3); NEUTROPHILS # (AUTO) 7.5 K/uL (1.8-7.7); PLATELET COUNT (AUTO) 148 K/uL (140-450); RED CELL DISTRIBUTION WIDTH 13.8 % (11.6-13.7)
[2019-03-19 09:45] LABS: LYMPHOCYTES # (AUTO) 1.4 K/uL (2.5-16.5); MONOCYTES # (AUTO) 0.8 K/uL (0.8-1.0)
--- NOTE | 2019-03-19 10:00 | NUR ---
Pt is resting in bed in stable condition. Call light in reach.
[2019-03-19 10:39] LABS: BASOPHILS % (AUTO) 0.1 % (0.0-2.0); EOSINOPHILS % (AUTO) 0.4 % (0.0-4.0); HEMATOCRIT 22.6 % (36-48); HEMOGLOBIN 7.4 g/dL (12.0-16.0); LYMPHOCYTES # (AUTO) 0.9 K/uL (2.5-16.5); LYMPHOCYTES % (AUTO) 8.9 % (20.5-51.1); MEAN CORPUSCULAR HEMOGLOBIN 31 pg (27-31); MEAN CORPUSCULAR HGB CONC 33 g/dL (33-37); MEAN CORPUSCULAR VOLUME 94.6 fL (80-94); MONOCYTES # (AUTO) 0.7 K/uL (0.8-1.0); MONOCYTES % (AUTO) 7.1 % (1.7-9.3); NEUTROPHILS # (AUTO) 8.7 K/uL (1.8-7.7); NEUTROPHILS % (AUTO) 83.5 % (42.2-75.2); PLATELET COUNT (AUTO) 173 K/uL (140-450); RED BLOOD CELL COUNT(AUTO) 2.38 MIL/uL (4.20-5.40); RED CELL DISTRIBUTION WIDTH 14.2 % (11.6-13.7); WHITE BLOOD COUNT (AUTO) 10.5 K/uL (4.8-10.8)
[2019-03-19 11:03] LABS: ANION GAP 8.5 (8-16); CARBON DIOXIDE 32.5 mmol/L (21-32); CHLORIDE 107 mmol/L (98-107); CREATININE 1.1 mg/dL (0.6-1.3); GLUCOSE 147 mg/dL (74-106); SODIUM SERUM 145 mmol/L (136-145); UREA NITROGEN, BLOOD 17 mg/dL (7-18)
[2019-03-19 11:07] LABS: PHOSPHORUS 1.4 mg/dL (2.5-4.9)
[2019-03-19 12:00] VITALS: BP 154/68
[2019-03-19] MEDS ORDERED: SODIUM PHOS / POTASSIUM PHOS 1 PKT PDR PO SCH (12:00)
--- NOTE | 2019-03-19 12:00 | NUR ---
Pt is resting in bed in stable condition. Family be bedside. Call light in reach.
[2019-03-19] MEDS ORDERED: POTASSIUM CHLORIDE 40 MEQ, LIDOCAINE MPF 1% 25 MG in NACL 0.9% 250 ML IV SCH (12:30)
--- NOTE | 2019-03-19 13:21 | NUR ---
DISCHARGE PLANNIN88 YEAR OLD FEMALE PATIENT FROM [facility]. WHO CAME IN DUE TO BILATERAL LEG PAIN S/P MECHANICAL FALL. PAST MEDICAL HISTORY INCLUDE CVA WITH BILATERAL LOWER LEG HEMIPLEGIA, CAD, CHF, ALZHEIMER'S DEMENTIA, COPD AND ATRIAL FIBRILLATION. INITIAL DIAGNOSIS OF LEFT DISPLACED TIBIAL PLATEAU FRACTURE, LEFT PROXIMAL FIBULA FRACTURE, RIGHT DISTAL TIBIAL FRACTURE. CURRENT LABS INCLUDE WBC 10.5, H/H 7.4/22.6, NA/K 145/3.0 AND PHOS 1.4. L TIBIA/FIBULA XR SHOWED FRACTURE IN THE PROXIMAL TIBIAL AND FIBULAR METAPHYSIS, OSTEOPENIA. LEFT KNEE XRAY SHOWED COMMINUTED FRACTURE INVOLVING THE PROXIMAL TIBIA WHICH APPEARS TO EXTEND TO THE LATERAL TIBIAL PLATEAU. FRACTURE OF THE PROXIMAL FIBULAR METAPHYSIS, JOINT EFFUSION WITH A SUSPECTED FAT/FLUID LEVEL. CXR SHOWED RIGHT UPPER LOBE INFILTRATE AND PROMINENT RIGHT HILUM. CARDIO CONSULT WITH DR. KWOK FOR CHF. PULMO CONSULT WITH DR. GARCIA FOR ACUTE RESPIRATORY DISTRESS AND PNEUMONIA. ON ROCEPHIN 1GM Q 24H AND METRONIDAZOLE Q8H. DC PLAN PENDING ON PATIENT'S RESPONSE TO TREATMENT. Addendum: 03/21/19 at 0848 by Melanie Oconnor CM RECEIVED AN ORDER FOR TRANSFER BACK TO [facility]. CONTACTED [facility] AT [phone], NO ANSWER. LEFT MESSAGE TO MICHELLE (ADMISSIONS). WILL FOLLOW UP. Addendum: 03/24/19 at 0841 by Melanie Oconnor CM SPOKE TO PATIENT'S DAUGHTER ANANDA, SHE STATED SHE DISCUSSED DC WITH DR. NOLAND AND IS AGREEABLE FOR PATIENT TO BE DC BACK TO [facility] TODAY. Addendum: 03/24/19 at 1003 by Melanie Oconnor CM CONTACTED [facility] AT [phone], NO ANSWER. LEFT MESSAGE TO [facility] ADMISSIONS. WILL FOLLOW UP. Addendum: 03/24/19 at 1125 by Melanie Oconnor CM ABLE TO GET A HOLD OF MICHELLE AT [facility], INFORMED HER THAT PATIENT WILL BE DC BACK TODAY. SHE STATED PATIENT WILL GO TO ROOM [address] NOL[address]. CONTACTED [facility] AT [phone], ABLE TO SPEAK TO NICANOR. S FIELD CROP TECHNICAL OFFICER WILL BE AT 1230. PRIMARY RN AND DR. MICHAUD MADE AWARE. CONTACTED PATIENT'S DAUGHTER ANANDA AT [phone], INFORM HER OF FIELD CROP TECHNICAL OFFICER TIME. SHE STATED SHE WILL BE HERE AT 1230.
--- NOTE | 2019-03-19 13:22 | NUR ---
03/19/19 RD FOLLOW UP COMPLETED PLEASE REFER TO NUTRITION ASSESSMENT UNDER CARE ACTIVITY FOR ESTIMATED NUTRITIONAL NEEDS. 1. CONTINUE PUREE CARDIAC DIET WITH HONEY THICK LIQUIDS TOLERATED 2. RECOMMEND ENSURE TID 3. CONTINUE TO PROVIDE ASSISTANCE WHEN EATING 4. RD TO FOLLOW-UP 3-5 DAYS, MODERATE RISK SUKHWINDER RBIEIRO RD
--- NOTE | 2019-03-19 15:27 | NUR ---
Pt is resting in bed in stable condition. Family be bedside. Call light in reach.
[2019-03-19 16:00] VITALS: BP 157/71
--- NOTE | 2019-03-19 19:37 | NUR ---
RECIEVED PT AAOX1 , MUMBLING , ON O2 AT 2LPM/NC - O2 SAT 99% , WITH PICC LINE AT THE RT UPPER ARM - IVF INFUSING WELL , WITH OPEN WOUND ON SACRAL COCCYX TOO SMALL IN SIZE , WITH FC INTACT - DRAINING CLEAR U.O . WITH LEG IMMOBILIZER ON THE LEFT LEFT , WITH SPLINT ON RT LOWER LEG - C/O PAIN -CRYING WHILE POINTING HER LEFT KNEE - WILL MEDICATE - TOLERATED ORAL MEDS AND FOOD PRESCRIBED , POC DISCUSSED BUT POOR UNDERSTANDING DUE TO MENTAL STATUS - HX CVA . ON SAFETY / FALL PRECAUTION PROTOCOL - BED ALARM ON - CALL LIGHT WITHIN REACH . WILL CONT. TO MONITOR.
--- NOTE | 2019-03-19 19:37 | NUR ---
Shift report given to certified caregiver nurse. Pt is n stable condition. Call light in reach.
[2019-03-19 20:00] VITALS: BP 130/78
[2019-03-19] MEDS: traZODone 50 MG TAB PO SCH (20:51)
[2019-03-19] MEDS: OLANZapine 5 MG TAB PO SCH (20:53)
[2019-03-19] MEDS: OLANZapine 2.5 MG TAB PO SCH (20:53)
--- NOTE | 2019-03-19 22:00 | NUR ---
MADE ROUNDS , NO S/ SX OG ACUTE DISTRESS NOTED AT THIS TIME , WILL CONT. TO MONITOR.
[2019-03-20] VITALS: BP 140/80
--- NOTE | 2019-03-20 | NUR ---
MADE ROUNDS , STILL AWAKE , NO SIGNS OG ACUTE DISTRESS NOTED AT THIS TIME . KEEP TALKING IRRELEVANTLY TO TOPIC - WILL CONT. TO MONITOR - BED ALARM ON.
[2019-03-20] MEDS: metroNIDAZOLE 500 MG/NS PREMIX 100 ML IV SCH (00:21)
[2019-03-20] MEDS: ACETAMINOPHEN 325 MG TAB PO PRN (00:21)
[2019-03-20] MEDS ORDERED: LORazepam 2 MG/ML VIAL IM/IVP SCH (01:30)
--- NOTE | 2019-03-20 01:30 | NUR ---
REFER TO MICHELLE BECAUSE OF SHOWING AGITATION - KEEPING PULLING OF FC AND TELE CORDS - WILL MEDICATE ORDERED
--- NOTE | 2019-03-20 01:35 | NUR ---
ATIVAN TIV GIVEN FOR AGITATION ORDERED - BP 140/70 MT 79 02 SAT 98% - WILL CONT. TO MONITOR.
[2019-03-20 04:00] VITALS: BP 130/70
[2019-03-20] MEDS ORDERED: hydrALAZINE 20 MG/ML VIAL ONE (10:59)
--- NOTE | 2019-03-21 07:30 | NUR ---
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 PATIENT LYING DOWN IN BED COMFORTABLY. NO DISTRESS NOTED. DENIES ANY PAIN. FLACC 0. AAOX1, CALM, COOPERATIVE, SKIN COLOR APPROPRIATE TO ETHNICITY, WARM TO TOUCH. HAS SACRAL SMALL WOUND. LEFT LE CAST NOTED, INTACT. RIGHT LE SPLINTS NOTED, INTACT. RESPIRATIONS EVEN, UNLABORED, ON O2 2OL/MIN VIA NC. REVIEWED PLAN OF CARE WITH PATIENT. PATIENT VERBALIZED UNDERSTANDING. SAFETY MEASURES IN PLACE, CALL LIGHT WITHIN REACH. WILL CONTINUE TO MONITOR.
[2019-03-21] MEDS ORDERED: LACT-81 PO (08:48)
[2019-03-21] MEDS ORDERED: CEFT1SOL1 IV (08:48)
[2019-03-21] MEDS: NACL 0.9% 1,000 ML IV SCH (11:30)
[2019-03-21 20:00] VITALS: BP 150/70
[2019-03-21 20:11] LABS: ANION GAP 10.4 (8-16); CARBON DIOXIDE 29.3 mmol/L (21-32); CHLORIDE 109 mmol/L (98-107); CREATININE 0.9 mg/dL (0.6-1.3); GLUCOSE 110 mg/dL (74-106); MAGNESIUM 1.9 mg/dL (1.8-2.4); PHOSPHORUS 2.3 mg/dL (2.5-4.9); POTASSIUM 3.7 mmol/L (3.5-5.1); SODIUM SERUM 145 mmol/L (136-145); UREA NITROGEN, BLOOD 21 mg/dL (7-18)
[2019-03-21] MEDS: OLANZapine 5 MG TAB PO SCH (21:00)
[2019-03-21] MEDS: DOCUSATE SODIUM 100 MG GELCAP PO SCH (21:00)
[2019-03-21] MEDS: traZODone 50 MG TAB PO SCH (21:00)
[2019-03-21] MEDS: MEMANTINE 10 MG TAB PO SCH (21:00)
[2019-03-21] MEDS: METOPROLOL 25 MG TAB PO SCH (21:00)
[2019-03-21] MEDS: POLYVINYL ALCOHOL 1.4% OP 15 ML SOL OP SCH (21:00)
[2019-03-21] MEDS: OLANZapine 2.5 MG TAB PO SCH (21:00)
[2019-03-21] MEDS ORDERED: METOPROLOL 50 MG TAB ONE (23:18)
[2019-03-22] VITALS: BP 165/83
[2019-03-22 08:00] VITALS: BP 164/80
[2019-03-22 08:04] LABS: BASOPHILS % (AUTO) 0.1 % (0.0-2.0); EOSINOPHILS # (AUTO) 0.3 K/uL (0-0.4); HEMATOCRIT 27.3 % (36-48); HEMOGLOBIN 8.8 g/dL (12.0-16.0); LYMPHOCYTES % (AUTO) 7.7 % (20.5-51.1); MEAN CORPUSCULAR HEMOGLOBIN 30 pg (27-31); MEAN CORPUSCULAR HGB CONC 32 g/dL (33-37); MEAN CORPUSCULAR VOLUME 92.8 fL (80-94); MONOCYTES # (AUTO) 1.1 K/uL (0.8-1.0); MONOCYTES % (AUTO) 8.6 % (1.7-9.3); NEUTROPHILS # (AUTO) 10.5 K/uL (1.8-7.7); NEUTROPHILS % (AUTO) 81.6 % (42.2-75.2); PLATELET COUNT (AUTO) 243 K/uL (140-450); RED BLOOD CELL COUNT(AUTO) 2.95 MIL/uL (4.20-5.40); RED CELL DISTRIBUTION WIDTH 15.5 % (11.6-13.7); WHITE BLOOD COUNT (AUTO) 12.8 K/uL (4.8-10.8)
[2019-03-22 08:43] LABS: ANION GAP 10.4 (8-16); CARBON DIOXIDE 29.3 mmol/L (21-32); CHLORIDE 103 mmol/L (98-107); CREATININE 0.8 mg/dL (0.6-1.3); GLUCOSE 111 mg/dL (74-106); POTASSIUM 3.7 mmol/L (3.5-5.1); SODIUM SERUM 139 mmol/L (136-145); UREA NITROGEN, BLOOD 18 mg/dL (7-18)
[2019-03-22 08:59] LABS: MAGNESIUM 1.6 mg/dL (1.8-2.4); PHOSPHORUS 2.5 mg/dL (2.5-4.9)
[2019-03-22] MEDS: DOCUSATE SODIUM 100 MG GELCAP PO SCH ×3 (09:00→20:25)
[2019-03-22] MEDS: FERROUS SULFATE 325 MG TABEC PO SCH (09:18)
[2019-03-22] MEDS: ECOTRIN 81 MG TABEC PO SCH ×2 (09:18→09:27)
[2019-03-22] MEDS: amLODIPine 5 MG TAB PO SCH ×2 (09:18→09:26)
[2019-03-22] MEDS: PANTOPRAZOLE 40 MG TABEC PO SCH ×2 (09:19→09:27)
[2019-03-22] MEDS: ASCORBIC ACID 500 MG TAB PO SCH ×2 (09:19→09:28)
[2019-03-22] MEDS: HYDROCHLOROTHIAZIDE 25 MG TAB PO SCH ×2 (09:19→09:26)
[2019-03-22] MEDS ORDERED: hydrALAZINE 20 MG/ML VIAL IVP PRN (09:55)
[2019-03-22 10:17] LABS: BASOPHILS % (AUTO) 0.3 % (0.0-2.0); EOSINOPHILS # (AUTO) 0.2 K/uL (0-0.4); EOSINOPHILS % (AUTO) 2.2 % (0.0-4.0); HEMATOCRIT 21.4 % (36-48); LYMPHOCYTES # (AUTO) 1.8 K/uL (2.5-16.5); LYMPHOCYTES % (AUTO) 18.1 % (20.5-51.1); MEAN CORPUSCULAR HEMOGLOBIN 31 pg (27-31); MEAN CORPUSCULAR HGB CONC 33 g/dL (33-37); MONOCYTES # (AUTO) 0.9 K/uL (0.8-1.0); MONOCYTES % (AUTO) 9.3 % (1.7-9.3); NEUTROPHILS # (AUTO) 6.9 K/uL (1.8-7.7); NEUTROPHILS % (AUTO) 70.1 % (42.2-75.2); PLATELET COUNT (AUTO) 186 K/uL (140-450); RED BLOOD CELL COUNT(AUTO) 2.28 MIL/uL (4.20-5.40); RED CELL DISTRIBUTION WIDTH 14.4 % (11.6-13.7); WHITE BLOOD COUNT (AUTO) 9.9 K/uL (4.8-10.8)
[2019-03-22] MEDS ORDERED: MAGNESIUM OXIDE 400 MG TAB PO SCH (11:00)
[2019-03-22] MEDS: MEMANTINE 10 MG TAB PO SCH ×2 (12:16→20:26)
[2019-03-22] MEDS: ATORVASTATIN 20 MG TAB PO SCH (12:16)
[2019-03-22] MEDS: DULoxetine 30 MG CAPDR PO SCH (12:17)
[2019-03-22] MEDS: METOPROLOL 25 MG TAB PO SCH ×2 (12:17→20:26)
[2019-03-22] MEDS: POLYVINYL ALCOHOL 1.4% OP 15 ML SOL OP SCH ×2 (12:18→20:25)
[2019-03-22] MEDS: NACL 0.9% 1,000 ML IV SCH (12:19)
[2019-03-22] MEDS: HYDROcodone/APAP 5/325 MG 1 TAB TAB PO PRN ×2 (13:47→21:42)
--- NOTE | 2019-03-22 15:14 | NUR ---
[facility] left message to patient,s family [facility] PT CAN STAY TILL MAR 23
--- NOTE | 2019-03-22 15:25 | NUR ---
JANNIE FROM [employer] MADE A COURTESY CALL TO LET US KNOW THAT PT FILED A RECONSIDERATION APPEAL. PER JANNIE, [facility] WILL TAKE RESPONSIBILITY AFTER THE APPEAL EXPIRES. [facility] NOTIFIED.
[2019-03-22 16:00] VITALS: BP 148/80
--- NOTE | 2019-03-22 17:34 | NUR ---
Received reort from nurse. Ms. Forbes. Pt is in bed instable condition. Call light in reach. Family be bedside.
--- NOTE | 2019-03-22 17:35 | NUR ---
ENDORSED PATIENT TO JAYLAN DAUGHERTY, PATIENT IN STABLE CONDITION, PATIENT LAYING IN BED WITH DAUGHTER AT THE BED SIDE.
[2019-03-22] MEDS: MORPHINE SULFATE 2 MG/ML SYR IVP PRN (18:55)
--- NOTE | 2019-03-22 19:14 | NUR ---
GAVE REPORT TO TAPE CUTTING MACHINE OPERATOR NURSE FOR CONTINUITY OF CARE. PATIENT IN STABLE CONDITION.
--- NOTE | 2019-03-22 19:20 | NUR ---
Shift report given to principal statistical programmer nurse. Pt is in stable condition. Call light in reach
--- NOTE | 2019-03-22 19:22 | NUR ---
RECEIVED PT IN STABLE CONDITION FROM AM NURSE. PT IS AWAKE,ALERT X3. CONFUSED AT TIMES. FAMILY MEMBER,DAUGHTER AT BEDSIDE. SHE SAID SHE HAS TO TALK TO DR. NOLAND IN AM. MED SURG PT. BEDREST. WITH IVF INFUSING WELL ON THE RT UPPER ARM PICC LINE. BOTH LEGS WITH SPLINT/YOLANDA WRAP AND IMMOBILIZER ON. PLAN OF CARE DISCUSSED AND VERBALIZED UNDERSTANDING. BABB CATHETER DRAINING WELL. BED ON LOW POSITION. FREQ ROUNDS NEEDED. CALL LIGHT PLACED WITHIN EASY REACH. WILL CONTINUE TO MONITOR.
--- NOTE | 2019-03-22 20:15 | NUR ---
DR. OH CAME WITH ER DR Zimmerman CHECKED THE RT LEG WITH FRACTURE. WILL NEED TO PUT CAST.
[2019-03-22] MEDS: traZODone 50 MG TAB PO SCH (20:25)
[2019-03-22] MEDS: OLANZapine 5 MG TAB PO SCH (20:26)
[2019-03-22] MEDS: OLANZapine 2.5 MG TAB PO SCH (20:26)
[2019-03-22] MEDS ORDERED: HYDROmorphone 1 MG/ML AMP IVP PRN (20:35)
[2019-03-22] MEDS ORDERED: fentaNYL 0.025 MG/HR PATCH TD ONE (21:30)
--- NOTE | 2019-03-22 21:38 | NUR ---
RT LEG CAST JUST APPLIED BY ER DR. DR. OH SAID PT DOESN'T NEED THE FENTANYL AND DILAUDID. XR OF RT TIBIA FIBULA ORDERED BY DR OH ,RESIDENT. DONE AT BEDSIDE. WILL FOLLOW UP RESULT.
--- NOTE | 2019-03-22 22:59 | NUR ---
RECEIVED PT ON 2L NC WITH SP02 99%, AND A CLEAR BREATH SOUNDS. NO RESPIRATORY DISTRESS NOTED. PRN TX NOT GIVEN. WILL CONTINUE TO MONITOR PT
--- NOTE | 2019-03-22 23:00 | NUR ---
PT AWAKE. NO S/S OF ANY PAIN NOTED. WILL CONTINUE TO MONITOR.
[2019-03-23 00:07] VITALS: BP 143/89
--- NOTE | 2019-03-23 01:00 | NUR ---
PT IS ASLEEP. NO S/S F ANY DISCOMFORT NOTED. WILL CONTINUE TO MONITOR.
--- NOTE | 2019-03-23 03:15 | NUR ---
AWAKE.TRIED TO REMOVE O2 CANNULA. PUT T BACK. NO DISTRESS NOTED.
--- NOTE | 2019-03-23 05:00 | NUR ---
PT IS ASLEEP. NO S/S OF ANY DISCOMFORT NOTED WILL CONTINUE TO MONITOR.
--- NOTE | 2019-03-23 06:35 | NUR ---
BLOOD WAS DRAWN FROM THE PICC LINE. WILL FOLLOW UP RESULTS OF AM LABS.
[2019-03-23] MEDS: HYDROcodone/APAP 5/325 MG 1 TAB TAB PO PRN ×2 (06:37→21:57)
--- NOTE | 2019-03-23 07:15 | NUR ---
ENDORSED PT IN STABLE CONDITION TO AM NURSE FOR CONTINUITY OF CARE.
--- NOTE | 2019-03-23 07:21 | NUR ---
Shift report received from maintenance technician 2nd shift nurse. Pt is in bed in stable condition. Call light in reach.
[2019-03-23 08:00] VITALS: BP 154/85
[2019-03-23 08:01] LABS: BASOPHILS % (AUTO) 0.2 % (0.0-2.0); EOSINOPHILS # (AUTO) 0.3 K/uL (0-0.4); EOSINOPHILS % (AUTO) 2.1 % (0.0-4.0); HEMATOCRIT 27.4 % (36-48); HEMOGLOBIN 8.8 g/dL (12.0-16.0); LYMPHOCYTES # (AUTO) 0.9 K/uL (2.5-16.5); MEAN CORPUSCULAR HEMOGLOBIN 30 pg (27-31); MEAN CORPUSCULAR HGB CONC 32 g/dL (33-37); MEAN CORPUSCULAR VOLUME 92.8 fL (80-94); MONOCYTES # (AUTO) 1.2 K/uL (0.8-1.0); MONOCYTES % (AUTO) 9.9 % (1.7-9.3); NEUTROPHILS % (AUTO) 80.8 % (42.2-75.2); PLATELET COUNT (AUTO) 281 K/uL (140-450); RED BLOOD CELL COUNT(AUTO) 2.95 MIL/uL (4.20-5.40); RED CELL DISTRIBUTION WIDTH 15.7 % (11.6-13.7); WHITE BLOOD COUNT (AUTO) 12.3 K/uL (4.8-10.8)
[2019-03-23 08:31] LABS: ANION GAP 13.5 (8-16); CARBON DIOXIDE 29.1 mmol/L (21-32); CHLORIDE 103 mmol/L (98-107); CREATININE 0.9 mg/dL (0.6-1.3); GLUCOSE 102 mg/dL (74-106); POTASSIUM 3.6 mmol/L (3.5-5.1); SODIUM SERUM 142 mmol/L (136-145); UREA NITROGEN, BLOOD 17 mg/dL (7-18)
[2019-03-23 08:35] LABS: MAGNESIUM 1.7 mg/dL (1.8-2.4); PHOSPHORUS 2.3 mg/dL (2.5-4.9)
[2019-03-23] MEDS: FERROUS SULFATE 325 MG TABEC PO SCH (08:44)
[2019-03-23] MEDS: amLODIPine 5 MG TAB PO SCH (08:44)
[2019-03-23] MEDS: DULoxetine 30 MG CAPDR PO SCH (08:45)
[2019-03-23] MEDS: HYDROCHLOROTHIAZIDE 25 MG TAB PO SCH (08:45)
[2019-03-23] MEDS: ECOTRIN 81 MG TABEC PO SCH (08:45)
[2019-03-23] MEDS: METOPROLOL 25 MG TAB PO SCH ×2 (08:46→20:35)
[2019-03-23] MEDS: ASCORBIC ACID 500 MG TAB PO SCH (08:46)
[2019-03-23] MEDS: DOCUSATE SODIUM 100 MG GELCAP PO SCH ×2 (08:46→20:34)
[2019-03-23] MEDS: ATORVASTATIN 20 MG TAB PO SCH (08:46)
[2019-03-23] MEDS: MEMANTINE 10 MG TAB PO SCH ×2 (08:46→20:36)
[2019-03-23] MEDS: PANTOPRAZOLE 40 MG TABEC PO SCH (08:46)
[2019-03-23] MEDS ORDERED: fentaNYL 0.025 MG/HR PATCH TD SCH (09:00)
[2019-03-23] MEDS: POLYVINYL ALCOHOL 1.4% OP 15 ML SOL OP SCH ×2 (09:05→20:34)
--- NOTE | 2019-03-23 10:00 | NUR ---
Pt is in bed in stable condition. Call light in reach.
[2019-03-23] MEDS ORDERED: SODIUM PHOS / POTASSIUM PHOS 1 PKT PDR PO SCH (12:00)
[2019-03-23] MEDS ORDERED: MAGNESIUM OXIDE 400 MG TAB PO SCH (12:00)
--- NOTE | 2019-03-23 13:00 | NUR ---
Pt is in bed in stable condition. Call light in reach.
[2019-03-23] MEDS: NACL 0.9% 1,000 ML IV SCH (14:10)
--- NOTE | 2019-03-23 15:00 | NUR ---
Pt is in bed in stable condition. Call light in reach.
[2019-03-23 16:00] VITALS: BP 154/71
--- NOTE | 2019-03-23 17:00 | NUR ---
Pt is in bed in stable condition. Call light in reach.
--- NOTE | 2019-03-23 18:00 | NUR ---
Pt is in bed in stable condition. Family by bedside. Call light in reach.
[2019-03-23 19:22] LABS: ANION GAP 8.4 (8-16); CARBON DIOXIDE 32.2 mmol/L (21-32); CHLORIDE 105 mmol/L (98-107); GLUCOSE 100 mg/dL (74-106); MAGNESIUM 1.8 mg/dL (1.8-2.4); PHOSPHORUS 2.4 mg/dL (2.5-4.9); POTASSIUM 3.6 mmol/L (3.5-5.1); SODIUM SERUM 142 mmol/L (136-145); UREA NITROGEN, BLOOD 23 mg/dL (7-18)
--- NOTE | 2019-03-23 19:30 | NUR ---
Shift report given to night nurse. Pt is in bed in stable condition. Call light in reach.
--- NOTE | 2019-03-23 19:35 | NUR ---
RECEIVED PT IN STABLE CONDITION FROM AM NURSE. AWAKE, ALERT BUT CONFUSED. ON MED SURG. WITH FAMILY AT BEDSIDE. BEDREST. HAS IVF INFUSING WELL ON THE RT UPPER ARM PICC LINE DOUBLE LUMEN. LEFT LEG SPLINT AND IMMOBILIZER AND RT SHORT LEG CAST WITH KNEE IMMOBILIZER IN PLACED. BABB CATH TO GRAVITY. PLAN OF CARE DISCUSSED AND FAMILY VERBALIZED UNDERSTANDING. BED ON LOWEST POSITION, SIDE RAILS UP X2, FREQ ROUNDS NEEDED. AND CALL LIGHT WITHIN EASY REACH.
[2019-03-23 20:31] VITALS: BP 165/67
[2019-03-23] MEDS: OLANZapine 5 MG TAB PO SCH (20:35)
[2019-03-23] MEDS: traZODone 50 MG TAB PO SCH (20:35)
[2019-03-23] MEDS: OLANZapine 2.5 MG TAB PO SCH (20:39)
[2019-03-23] MEDS ORDERED: LATANOPROST 0.005% OP 2.5 ML BTL OP SCH (21:00)
--- NOTE | 2019-03-23 21:00 | NUR ---
PT TOOK ALL HER NIGHT MEDS. TOLERATED WITH SOME APPLE SAUCE. DAUGHTER STILL AT BEDSIDE. NO C/O ANY DISTRESS NOTED.
--- NOTE | 2019-03-23 21:33 | NUR ---
RECEIVED PATIENT ON 2L NASAL CANNULA, PULSE OX SAT 100%. NO SOB NOTED. PRN HHN NOT INDICATED AT THIS TIME. NO ACUTE RESPIRATORY DISTRESS NOTED. WILL CONTINUE TO MONITOR.
--- NOTE | 2019-03-23 23:00 | NUR ---
PT REPOSITIONED FOR COMFORT CAUTIOUSLY DUE TO STEPHEN LEG FRACTURE.
--- NOTE | 2019-03-24 01:30 | NUR ---
MADE ROUNDS. PT ASLEEP. NO S/S OF ANY DISCOMFORT NOTED. WILL CONTINUE TO MONITOR.
--- NOTE | 2019-03-24 04:00 | NUR ---
SACRAL WOUND CLEANSED WITH NS AND PAT DRY. PICTURE TAKEN THEN OPTIFOAM DRESSING APPLIED. WILL CALL MD FOR TREATMENT ORDER.
[2019-03-24] MEDS: HYDROcodone/APAP 5/325 MG 1 TAB TAB PO PRN (04:16)
--- NOTE | 2019-03-24 04:45 | NUR ---
CALLED DR. HO ,RESIDENT TO GET ORDER FOR SACRAL WOUND TREATMENT.
[2019-03-24] MEDS ORDERED: Z-GUARD PASTE TP PRN ×2 (05:00→12:35)
--- NOTE | 2019-03-24 05:16 | NUR ---
MADE ROUNDS . PT ASLEEP. NO S/S OF ANY DISCOMFORT NOTED AFTER GIVEN PAIN PILL.
--- NOTE | 2019-03-24 07:05 | NUR ---
ENDORSED PT IN STABLE CONDITION TO AM NURSE FOR CONTINUITY OF CARE.
--- NOTE | 2019-03-24 07:05 | NUR ---
RECEIVED REPORT FROM MAL RN. PATIENT IS DNR, ALLERGIES TO PENICILLIN. PRESENT IS PICC LINE TO RIGHT UA, DOUBLE LUMEN. AAOX2, FROM [facility]. PT IS INCONTINENT. PLAN IS TO DC BACK TO [facility] FOR CONTINUED ABX. WILL REVIEW AND CONTINUE WITH PLAN OF CARE.
[2019-03-24 08:00] VITALS: BP 126/72
[2019-03-24] MEDS: FERROUS SULFATE 325 MG TABEC PO SCH (08:00)
[2019-03-24] MEDS ORDERED: MAG SULF 2000 MG/WATER PREMIX 50 ML IV ONE (08:20)
[2019-03-24] MEDS ORDERED: SODIUM PHOS / POTASSIUM PHOS 1 PKT PDR PO ONE (08:20)
[2019-03-24] MEDS: MEMANTINE 10 MG TAB PO SCH (08:32)
[2019-03-24] MEDS: ASCORBIC ACID 500 MG TAB PO SCH (08:33)
[2019-03-24] MEDS: ATORVASTATIN 20 MG TAB PO SCH (08:33)
[2019-03-24] MEDS: amLODIPine 5 MG TAB PO SCH (08:33)
[2019-03-24] MEDS: HYDROCHLOROTHIAZIDE 25 MG TAB PO SCH (08:34)
[2019-03-24] MEDS: PANTOPRAZOLE 40 MG TABEC PO SCH (08:34)
[2019-03-24] MEDS: ECOTRIN 81 MG TABEC PO SCH (08:35)
[2019-03-24] MEDS: DULoxetine 30 MG CAPDR PO SCH (08:35)
[2019-03-24] MEDS: METOPROLOL 25 MG TAB PO SCH (08:36)
[2019-03-24] MEDS: DOCUSATE SODIUM 100 MG GELCAP PO SCH (08:36)
[2019-03-24] MEDS: POLYVINYL ALCOHOL 1.4% OP 15 ML SOL OP SCH (08:38)
[2019-03-24] MEDS ORDERED: LACTOBACILLUS RHAMNOSUS GG 1 EACH CAP PO SCH (09:00)
--- NOTE | 2019-03-24 09:10 | NUR ---
ADMINISTERED MORNING MEDICATION CRUSHED AND MIXED WITH PO. DID NOT ADMIN ENTERIC COATED RX D/T UNABLE TO CRUSH AND PATIENT CANNOT TOLERATED SWALLOWING PO WHOLE.
[2019-03-24] MEDS ORDERED: CEPH-1019 PO (09:59)
[2019-03-24 10:03] LABS: BASOPHILS # (AUTO) 0.1 K/uL (0.00-0.22); BASOPHILS % (AUTO) 1.1 % (0.0-2.0); EOSINOPHILS # (AUTO) 0.2 K/uL (0-0.4); HEMATOCRIT 26.9 % (36-48); HEMOGLOBIN 8.7 g/dL (12.0-16.0); LYMPHOCYTES # (AUTO) 0.9 K/uL (2.5-16.5); LYMPHOCYTES % (AUTO) 11.2 % (20.5-51.1); MEAN CORPUSCULAR HEMOGLOBIN 30 pg (27-31); MEAN CORPUSCULAR HGB CONC 32 g/dL (33-37); MEAN CORPUSCULAR VOLUME 92.8 fL (80-94); MONOCYTES # (AUTO) 0.8 K/uL (0.8-1.0); NEUTROPHILS # (AUTO) 6.2 K/uL (1.8-7.7); NEUTROPHILS % (AUTO) 74.7 % (42.2-75.2); PLATELET COUNT (AUTO) 306 K/uL (140-450); RED CELL DISTRIBUTION WIDTH 15.8 % (11.6-13.7); WHITE BLOOD COUNT (AUTO) 8.2 K/uL (4.8-10.8)
[2019-03-24 10:26] LABS: ANION GAP 10.5 (8-16); CARBON DIOXIDE 33.1 mmol/L (21-32); CHLORIDE 104 mmol/L (98-107); CREATININE 0.9 mg/dL (0.6-1.3); GLUCOSE 107 mg/dL (74-106); POTASSIUM 3.6 mmol/L (3.5-5.1); SODIUM SERUM 144 mmol/L (136-145); UREA NITROGEN, BLOOD 15 mg/dL (7-18)
--- NOTE | 2019-03-24 11:30 | NUR ---
CONTACTED [facility] TO GIVE REPORT TO NURSE. WAS TRANSFERRED TO NURSES STATION AND THEN VOICEMAIL CAME UP, NO ANSWER. LEFT MESSAGE FOR REASON TO CALLING AND LEFT CALLBACK NUMBER FOR FACILITY TO REACH US AT.
--- NOTE | 2019-03-24 12:00 | NUR ---
REMOVED PATIENTS PICC LINE, LINE INTACT. REMOVED F/C, LINE INTACT. DAUGHTER AT BEDSIDE, AWAITING PICKUP FROM [facility].
--- NOTE | 2019-03-24 12:19 | NUR ---
SCREEN FOR LOW BRANDON SCALE AND REQUEST FOR WOUND CARE CONSULT REASON FOR EVALUATION: SACRALCOCCYX WOUND PT. ADMITTED WITH SACRALCOCCYX PRESSURE ULCER WITH UN-KNOW HX /STAGE OF PRESSURE ULCER. TODAYS ASSESSMENT SACRAL COCCYX PRESSURE ULCER WITH PARTIAL THICKNESS SKIN LOSS. DAUGHTER, ANANDA AT BED SIDE, COMORBIDITIES RELATED TO DELAY WOUND HEALING AND FURTHER SKIN BREAKS EXPLAINED. POC DISCUSSED, PRIMARY RN AT BED SIDE AND NOTICED. INTEGUMENTARY: -SACRALCOCCYX PRESSURE ULCER STAGE 2, WOUND BED 100% PALE RED, MOIST, NO ODOR, 4X3CM WITH SUPERFICIAL DEPTH, IRREGULAR SHAPE, SHARRI-WOUND SKIN WITH HEALING SCARS AND REDNESS FRAGILE SKIN. -BLE FX WITH DRESSING IN PLACE RECOMMENDATIONS: -CLEANSE SACRALCOCCYX WITH SOAP AND WATER, PAT DRY, APPLY Z-GUARD AND COVER WITH OPTIFOAM QD AND PRN IF SOILING. -KEEP SKIN DRY AND CLEAN AT ALL TIMES -OFFLOAD BILATERAL HEELS BY PLACING PILLOWS UNDER CALVES UNLESS OTHERWISE CONTRAINDICATED -HEEL PROTECTORS TO BILATERAL HEELS AT ALLTIMES -PRESSURE REDISTRIBUTION SURFACE THERAPY -TURN AND REPOSITION Q2H, OFFLOAD SACRALCOCCYX -MONITOR SKIN CONDITION EACH TIME PT IS REPOSITIONS -CONTINUE TO FOLLOW RD RECOMMENDATIONS ALL ABOVE RECOMMENDATIONS DISCUSSED WITH PRIMARY RN WILL FOLLOW UP PT Q7-10 DAYS. PLEASE CONTACT WOUND CARE NURSE FOR ANY QUESTION AND CHANGE OF WOUND CONDITION.
--- NOTE | 2019-03-24 12:50 | NUR ---
PATIENT HAS BEEN DISCHARGED TO [facility]. DAUGHTER AT BEDSIDE AND AWARE. DAUGHTER TOOK DISCHARGE PAPERWORK. WRISTBANDS REMOVED.
[2019-03-27 15:02] LABS: HEMATOCRIT 29.7 % (36-48); HEMOGLOBIN 9.5 g/dL (12.0-16.0); MEAN CORPUSCULAR VOLUME 92.7 fL (80-94); WHITE BLOOD COUNT (AUTO) 11.3 K/uL (4.8-10.8)
[2019-03-27 15:03] LABS: BASOPHILS % (AUTO) 0.2 % (0.0-2.0); EOSINOPHILS # (AUTO) 0.3 K/uL (0-0.4); EOSINOPHILS % (AUTO) 2.6 % (0.0-4.0); LYMPHOCYTES # (AUTO) 1.5 K/uL (2.5-16.5); MEAN CORPUSCULAR HEMOGLOBIN 30 pg (27-31); MEAN CORPUSCULAR HGB CONC 32 g/dL (33-37); MONOCYTES # (AUTO) 0.9 K/uL (0.8-1.0); MONOCYTES % (AUTO) 7.5 % (1.7-9.3); NEUTROPHILS # (AUTO) 8.7 K/uL (1.8-7.7); NEUTROPHILS % (AUTO) 76.7 % (42.2-75.2); PLATELET COUNT (AUTO) 229 K/uL (140-450); RED CELL DISTRIBUTION WIDTH 16.2 % (11.6-13.7)
== END 2019-03-24 12:50 | DRG 177 ==
LOC: MED 22:58 → MTU 03-16 01:30
PROVIDERS: ADMIT Family Medicine; ATTEND Family Medicine
PROC: 30233N1 Transfusion of Nonautologous Red Blood Cells into Peripheral Vein, Percutaneous Approach (ICD-10-PCS; principal; 2019-03-18)
PROC: 02HV33Z Insertion of Infusion Device into Superior Vena Cava, Percutaneous Approach (ICD-10-PCS; 2019-03-18)
PROC: B548ZZA Ultrasonography of Superior Vena Cava, Guidance (ICD-10-PCS; 2019-03-18)
DX: J69.0 Pneumonitis due to inhalation of food and vomit (principal); G93.41 Metabolic encephalopathy; I50.43 Acute on chronic combined systolic (congestive) and diastolic (congestive) heart failure; J96.21 Acute and chronic respiratory failure with hypoxia; S82.142A Displaced bicondylar fracture of left tibia, initial encounter for closed fracture; I42.9 Cardiomyopathy, unspecified; I69.354 Hemiplegia and hemiparesis following cerebral infarction affecting left non-dominant side; I69.351 Hemiplegia and hemiparesis following cerebral infarction affecting right dominant side; N12 Tubulo-interstitial nephritis, not specified as acute or chronic; E44.1 Mild protein-calorie malnutrition; S82.102A Unspecified fracture of upper end of left tibia, initial encounter for closed fracture; S69.92XA Unspecified injury of left wrist, hand and finger(s), initial encounter; E83.39 Other disorders of phosphorus metabolism; E83.42 Hypomagnesemia; B96.1 Klebsiella pneumoniae [K. pneumoniae] as the cause of diseases classified elsewhere; I11.0 Hypertensive heart disease with heart failure; S82.832A Other fracture of upper and lower end of left fibula, initial encounter for closed fracture; D64.9 Anemia, unspecified; G30.9 Alzheimer's disease, unspecified; F02.80 Dementia in other diseases classified elsewhere, unspecified severity, without behavioral disturbance, psychotic disturbance, mood disturbance, and anxiety; G89.29 Other chronic pain; W06.XXXA Fall from bed, initial encounter; F32.9 Major depressive disorder, single episode, unspecified; I25.10 Atherosclerotic heart disease of native coronary artery without angina pectoris; F41.9 Anxiety disorder, unspecified; G47.00 Insomnia, unspecified; M85.862 Other specified disorders of bone density and structure, left lower leg; H40.9 Unspecified glaucoma; J44.9 Chronic obstructive pulmonary disease, unspecified; R13.10 Dysphagia, unspecified; I48.91 Unspecified atrial fibrillation; M19.90 Unspecified osteoarthritis, unspecified site; Z91.81 History of falling; Z79.899 Other long term (current) drug therapy; Z88.0 Allergy status to penicillin; Y93.89 Activity, other specified; Y92.89 Other specified places as the place of occurrence of the external cause; Y99.8 Other external cause status; Z68.21 Body mass index [BMI] 21.0-21.9, adult; Z99.3 Dependence on wheelchair; Z74.01 Bed confinement status
CPT/HCPCS: 29505; 36415; 36600; 51702; 71045; 73080; 73090; 73130; 73560; 73562; 73590; 80048; 80053; 81001; 82140; 82150; 82272; 82607; 82728; 82746; 82803; 83036; 83540; 83605; 83690; 83735; 83880; 84100; 84134; 84436; 84443; 84479; 84484; 85025; 85045; 85610; 85730; 86886; 86900; 86901; 86920; 87040; 87081; 87086; 87186; 92610; 93005; 93925; 93970; 94640; 96360; 99285; C1751; J0360; J0696; J1644; J1940; J2001; J2060; J2270; J2916; J3480; J3490; J7030; J7060; J7620; J7626; P9016; Q0092